=== PATIENT | male | born 1965 | race Caucasian/White ===

== ENCOUNTER 2018-02-20 08:19 | Emergency (ER) | payer SELFPAY ==
[2018-02-20] MEDS ORDERED: Ondansetron PF 4 MG/2 ML Vial ONE (08:56)
[2018-02-20] MEDS ORDERED: Sodium Chloride 0.9% 1,000 ML ONE (08:56)
[2018-02-20] MEDS ORDERED: Ketorolac Tromethamine 30 MG/ML VIAL ONE (08:56)
[2018-02-20 09:16] LABS: #Eosinphils 0.1 thou/uL (0.0-0.7); #Lymphocytes 1.3 thou/uL (1.20-3.40); #Monocytes 0.9 thou/uL (0.11-0.59); #Neutrophils 11.6 thou/uL (1.40-6.50); %Basophils 0.2 % (0.0-1.0); %Eosinophils 0.5 % (0.0-10.0); %Lymphocytes 9.7 % (21.0-51.0); %Monocytes 6.1 % (0.0-10.0); %Neutrophils 83.5 % (42.0-75.0); Hemoglobin 12.2 g/dL (14.0-18.0); Mean Corpuscular HGB CONC 33.5 g/dL (32.0-36.0); Mean Corpuscular Hemoglobin 31.5 pg (27.0-31.0); Mean Platelet Volume 6.4 fL (7.4-10.4); Platelet Count 368 thou/uL (130-400); RBC Distribution Width 12.5 % (11.5-14.5); Red Blood Cell (RBC) Count 3.87 mill/uL (4.70-6.10); White Blood Cell (WBC) Count 13.9 thou/uL (4.8-10.8)
[2018-02-20 09:27] LABS: Bilirubin Small (Negative); Blood, Urine Small (Negative); Clarity Cloudy (Clear); Glucose, Urine (Dipstick) Negative (Negative); Leukocyte Moderate (Negative); Nitrite Positive (Negative); Protein, Urine (Dipstick) 30 mg/dL (Neg-Trace); Specific Gravity, Urine 1.015 (1.005-1.030)
[2018-02-20 09:38] LABS: Bacteria/HPF 4+ HPF (None Seen); Squamous Epithelial 0-3 HPF (0-3)
[2018-02-20] MEDS ORDERED: cefTRIAXone\\ROCEPHIN 1 GM VIAL ONE ×2 (09:49→09:51)
[2018-02-20] MEDS ORDERED: Sodium Chloride 0.9% 100 ML ONE (09:49)
[2018-02-20 09:51] LABS: ALT (SGPT) 17 U/L (8-55); AST (SGOT) 31 U/L (5-34); Albumin 3.2 g/dL (3.5-5.0); Alkaline Phosphatase 97 U/L (40-150); Anion Gap 16 mmol/L (10-20); BUN (Urea Nitrogen) 18 mg/dL (8.4-25.7); Bilirubin, Total 1.1 mg/dL (0.2-1.2); Calc. Creatinine Clearance 0 mL/min (70-130); Carbon Dioxide 28 mmol/L (22-29); Chloride 90 mmol/L (98-107); Estimated GFR-MDRD 86; Globulin 4.3 g/dL (2.4-3.5); Glucose 149 mg/dL (70-105); Lipase 10 U/L (8-78); Protein, Total 7.5 g/dL (6.0-8.3); Sodium 131 mmol/L (136-145)
[2018-02-20] MEDS ORDERED: Potassium Chloride 20 MEQ TAB ONE (10:05)
[2018-02-20] MEDS ORDERED: Ciprofloxacin Lactate/D5W 400 mg/200 ml Premix ONE (10:13)
--- NOTE | 2018-02-20 10:18 | CT ---
CT OF THE ABDOMEN AND PELVIS WITH IV CONTRAST: DATE: 02/20/2018. PROVIDED CLINICAL HISTORY: Lower abdominal pain, vomiting, and weight loss. FINDINGS: No comparisons. There are sub-pleural emphysematous changes seen involving the visualized lung bases . Centrilobular emphysematous changes are also seen involving the visualized portions of the lingula . The liver, spleen, and pancreas demonstrate a normal CT appearance. There is an 11 mm nonobstructing inferior pole left renal calculus. There is enlargement of both adrenal glands without focal mass. The right kidney appears unremarkable. There is conspicuous mural thickening involving the rectum and rectosigmoid junction. There is a gas and fluid collection noted anterior to the rectum measuring at least 4.3 cm, which appears extralumi nal. Numerous sigmoid colonic diverticula are seen. There is conspicuous colonic fecal retention. There is no evidence for bowel obstruction. There is no evidence for pneumoperitoneum. Conspicuous vascular calcification and atheromatous plaque is noted involving the abdominal aorta and its branches. There is ectasia of the abdominal aorta measuring about 2.7 cm. The osseous structures demonstrate no concerning osteoblastic or osteolytic lesions. IMPRESSION: 1. Focal mural thickening involving the rectosigmoid junction, which may reflect an infectious, infl ammatory, or neoplastic process. There is an adjacent 4.3 cm gas and fluid collection anterior to th e rectum compatible with contained perforation. 2. Conspicuous atherosclerosis. 3. Emphysema. POS: [facility]
[2018-02-20] MEDS ORDERED: metroNIDAZOLE 500 MG/100 ML BAG ONE (10:32)
[2018-02-20] MEDS ORDERED: Iopamidol 370 76% 100 ML VIAL ONE (12:34)
[2018-02-21 21:55] LABS: Chlamydia by PCR Not Detected (NotDetected); GC by PCR Not Detected (NotDetected)
== END 2018-02-20 11:15 | disposition short-term general hospital (02) ==
LOC: NAV ERS 08:19
DX: K52.9 Noninfective gastroenteritis and colitis, unspecified (principal); K65.1 Peritoneal abscess; N39.0 Urinary tract infection, site not specified; N50.9 Disorder of male genital organs, unspecified; I10 Essential (primary) hypertension; F17.210 Nicotine dependence, cigarettes, uncomplicated; Z79.899 Other long term (current) drug therapy
CPT/HCPCS: 74177; 80053; 81003; 81015; 83605; 83690; 85025; 87077; 87086; 87186; 87491; 87591; 96361; 96365; 96367; 96375; J0696; J0744; J1885; J2405; J7050